=== PATIENT | female | born 1990 | race African-American/Black ===

== ENCOUNTER 2016-10-25 16:59 | Emergency (ER) | payer MEDICAID ==
[~2016-10-25] VITALS: Ht 170.2 cm; Wt 68.0 kg
[2016-10-25 17:13] VITALS: BP 110/70
[2016-10-25 18:40] VITALS: BP 108/64
[2016-10-25] MEDS ORDERED: ROBAXIN-750750 MG PO (18:47)
[2016-10-25] MEDS ORDERED: TYLENOL EXTRA500 MG ORAL (18:47)
[2016-10-25 18:51] VITALS: BP 108/64
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
--- NOTE | 2016-10-26 12:32 | Diagnostic Imaging Report ---
Indication: Neck Pain Findings: 3 views of the cervical spine were obtained. There is no acute fracture identified. Alignment is normal. The open-mouth odontoid view shows an intact dens and good alignment of the lateral masses with respect to the body of C2. There is no soft tissue swelling. Impression: Negative cervical spine examination.
== END 2016-10-25 18:51 | disposition home or self-care (01) ==
LOC: EMR 17:30
DX: R25.2 Cramp and spasm (principal); S13.9XXA Sprain of joints and ligaments of unspecified parts of neck, initial encounter; V43.62XA Car passenger injured in collision with other type car in traffic accident, initial encounter; Y92.410 Unspecified street and highway as the place of occurrence of the external cause; Z88.6 Allergy status to analgesic agent
CPT/HCPCS: 72040; 99284

== ENCOUNTER 2016-12-26 22:57 | Emergency (ER) | payer BC, MEDICAID ==
[~2016-12-26] VITALS: Ht 170.2 cm; Wt 68.5 kg
[~2016-12-26 22:57] MED LIST: ROBAXIN-750750 MG PO; TYLENOL EXTRA500 MG ORAL
[2016-12-26] MEDS ORDERED: NKM (23:09)
[2016-12-26 23:15] VITALS: BP 120/70
[2016-12-27] MEDS ORDERED: REGLAN10 MG ORAL (00:09)
[2016-12-27 00:28] VITALS: BP 120/70
--- NOTE | 2016-12-27 00:38 | Emergency Room Report ---
History of Present Illness General Chief Complaint: Headache Source: Patient Present Illness HPI 26YOF walk in with headache right side/sikh, pulsatile, some blurry vision and nausea started at work Atraumatic Gets headaches once a month Never seen neurologist No history of self/family migraines Denies fever/chils, neck pain/stiffness Took tylenol at work, 325mg only Allergies: Coded Allergies: ASPIRIN (Verified Allergy, Unknown, 10/25/16) GAG REFLEX, CHEST TIGHTNESS IBUPROFEN (Verified Allergy, Unknown, 10/25/16) ACTIVATES GAG REFLEX & CHEST TIGHTNESS Patient History Past Medical History: none Past Surgical History: none Pertinent Family History: none Social History: Denies: smoking, alcohol use, drug use Last Menstrual Period: Last month Now: No Immunizations: UTD Reviewed Nursing Documentation: PMH: Agreed, PSxH: Agreed Nursing Documentation-PMH Past Medical History: No Stated History Review of Systems All Other Systems: negative except mentioned in HPI Physical Exam Vital Signs Date Time Temp Pulse Resp B/P (MAP) Pulse Ox O2 Delivery O2 Flow Rate FiO2 12/26/16 23:04 97.9 80 17 116/70 98 Room Air Sp02 EP Interpretation: reviewed, normal General Appearance: normal inspection, well appearing, no apparent distress, alert Head: atraumatic ENT: normal ENT inspection, hearing grossly normal, normal pharynx, no angioedema, normal voice Neck: normal inspection, full range of motion, supple, no meningismus, no bony tend Respiratory: normal inspection, lungs clear, normal breath sounds, no respiratory distress, no retraction, no wheezing Cardiovascular #1: regular rate, rhythm, no edema Gastrointestinal: normal inspection, normal bowel sounds, non tender, soft, no guarding, no hernia Genitourinary: no CVA tenderness Musculoskeletal: normal inspection, back normal, normal range of motion, Cheryl' s Sign negative Neurologic: normal inspection, alert, oriented x3, responsive, dynamicist III-XII nml as tested, motor strength/tone normal, speech normal Psychiatric: normal inspection, judgement/insight normal, mood/affect normal Skin: normal inspection, normal color, no rash Medical Decision Making Diagnostic Impression: Primary Impression: Headache Qualified Codes: G44.209 - Tension-type headache, unspecified, not intractable ER Course Acute headache VSS. Afebrile No focal neuro deficits, no meningismus Tension vs migraine Given reglan with tylenol here Rx reglan PMD referral for Neuro as needed Last Vital Signs Date Time Temp Pulse Resp B/P (MAP) Pulse Ox O2 Delivery O2 Flow Rate FiO2 12/27/16 00:28 98.2 80 16 120/70 99 Room Air Status: improved Disposition: HOME, SELF-CARE Condition: Improved Scripts Metoclopramide Hcl* (REGLAN*) 10 Mg Tablet 10 MG ORAL BID for 7 Days, #14 TAB Prov: MORRIS GALVAN M.D. 12/27/16 Referrals: NON PHYSICIAN (PCP) Patient Instructions: Tension Headache, Migraine Headache Additional Instructions: - Take tylenol 650mg WITH Reglan 10mg (one pill) up to twice a day for headache - Follow up with primary doc for Neurology referral for ?migraines MORRIS GALVAN M.D. Dec 27, 2016 00:38
== END 2016-12-27 00:27 | disposition home or self-care (01) ==
LOC: EMR 23:56
DX: R51 Headache (principal); Z88.6 Allergy status to analgesic agent
CPT/HCPCS: 99283

== ENCOUNTER 2017-05-24 13:37 | Emergency (ER) | payer BC, MEDICAID ==
[~2017-05-24] VITALS: Ht 170.2 cm; Wt 70.3 kg
[~2017-05-24 13:37] MED LIST changes: +NKM; +REGLAN10 MG ORAL
[2017-05-24 14:32] VITALS: BP 124/73
--- NOTE | 2017-05-24 14:48 | Emergency Room Report ---
History of Present Illness General Chief Complaint: Upper Respiratory Illness Source: Patient Present Illness HPI 26 yo female patient presents to ER complaining of dry cough and congestions x2 weeks. Patient reports history of asthma and bronchitis; states she used inhaler yesterday with mild relief of symptoms; states she needs a new inhaler. Patient reports hx of sick contacts; [place] Patient complains of mucus in her chest and throat. Patient reports symptoms worse at night. Patient denies fever, diarrhea, constipation Allergies: Coded Allergies: ASPIRIN (Verified Allergy, Unknown, 10/25/16) GAG REFLEX, CHEST TIGHTNESS IBUPROFEN (Verified Allergy, Unknown, 10/25/16) ACTIVATES GAG REFLEX & CHEST TIGHTNESS Patient History Past Medical History: see triage record Last Menstrual Period: 05/18/17 Now: No Immunizations: UTD Reviewed Nursing Documentation: PMH: Agreed, PSxH: Agreed Review of Systems All Other Systems: negative except mentioned in HPI Physical Exam Vital Signs Date Time Temp Pulse Resp B/P (MAP) Pulse Ox O2 Delivery O2 Flow Rate FiO2 05/24/17 14:22 98.5 83 16 120/71 99 Room Air 98.4 Sp02 EP Interpretation: reviewed, normal General Appearance: no apparent distress, alert, GCS 15, non-toxic Head: normocephalic, atraumatic Eyes: bilateral eye normal inspection, bilateral eye PERRL ENT: hearing grossly normal, normal pharynx, no angioedema, normal voice, TMs + canals normal, uvula midline, nasal congestion Neck: full range of motion, supple/symm/no masses Respiratory: no rhonchi, no accessory muscle use, decreased breath sounds - right lobe, speaking full sentences, other - no stridor Cardiovascular #1: regular rate, rhythm, no edema Musculoskeletal: back normal, digits/nails normal, gait/station normal, normal range of motion, non-tender Neurologic: alert, oriented x3, responsive, motor strength/tone normal, sensory intact, speech normal Psychiatric: mood/affect normal Skin: no rash Lymphatic: no adenopathy Medical Decision Making PA Attestation Dr. Pham is my supervising Physician whom patient management has been discussed with. Diagnostic Impression: Primary Impression: Bronchitis ER Course Patient presents to ER complaining of breathing difficulty. DDx considered but are not limited to asthma, viral URI, pneumonia. Vital signs are normal, patient is afebrile. Ordered a breathing treatment and CXR. ER COURSE: CXR negative for acute disease. Albuterol/Atrovent breathing treatment provided. Patient reports feeling better following breathing treatment. Lungs able to move air, no crackles, no rhonci. Patient is resting comfortably, in no acute distress, nontoxic appearing. Discharge: -Rx given for Prednisone. -Rx provided for Albuterol MDI. -Rx provided for Guaifenesin At this time pt is stable for d/c to home. Patient to take medications as instructed. Will provide with patient care instructions and any necessary prescriptions. Care plan and follow-up instructions provided. Patient instructed to follow-up with primary care provider in 3 - 5 days. Patient questions asked and answered. ER precautions given. Patient instructed to return to ER immediately for any new or worsening of symptoms including but not limited to increasing SOB, persistent fever. Chest X-Ray Diagnostic Results Chest X-Ray Diagnostic Results : Chest X-Ray Ordered: Yes # of Views/Limited/Complete: 1 View Indication: Chest Pain EP Interpretation: Yes PA Xray: Interpretation reviewed, by supervising MD, and agrees with findings. Interpretation: no consolidation, no effusion, no pneumothorax, no acute cardiopulmonary disease Impression: No acute disease AMADO Scribe Text Parveen Ferguson PA-C Last Vital Signs Date Time Temp Pulse Resp B/P (MAP) Pulse Ox O2 Delivery O2 Flow Rate FiO2 05/24/17 14:22 98.5 83 16 120/71 99 Room Air 98.4 Status: improved Disposition: HOME, SELF-CARE Condition: Stable Scripts Prednisone* (PREDNISONE*) 20 Mg Tablet 40 MG ORAL DAILY for 5 Days, #10 TAB Prov: Vinicio Ferguson 05/24/17 Guaifenesin* (ADULT WAL-TUSSIN*) 100 Mg/5 Ml Liquid 10 ML ORAL Q4H for 7 Days, #118 ML Prov: Vinicio Ferguson 05/24/17 Albuterol Sulfate* (ALBUTEROL SULFATE MDI*) 8.5 Gm Hfa.aer.ad 2 PUFF INH Q6H, #1 INH 0 Refills Prov: Vinicio Ferguson 05/24/17 Patient Instructions: Acute Bronchitis, [id number] Additional Instructions: Followup with primary care provider in 3 -5 days. Take medications as directed. Patient questions asked and answered. ER precautions given, patient instructed to return to ER immediately for any new or worsening of symptoms including but not limited to fever, chest pain, intractable vomiting, difficulty breathing. Vinicio Ferguson May 24, 2017 14:47
[2017-05-24] MEDS ORDERED: Albuterol/Ipratropium 3ml neb HHN ONE (15:30)
[2017-05-24] MEDS ORDERED: PREDNISONE20 MG ORAL (15:46)
[2017-05-24] MEDS ORDERED: ADULT WAL-100 MG/5 M ORAL (15:46)
[2017-05-24] MEDS ORDERED: ALBUTEROL SULF8.5 GM INH (15:46)
--- NOTE | 2017-05-24 16:33 | Diagnostic Imaging Report ---
Indication: Dyspnea Comparison: None A single view chest radiograph was obtained. Findings: Cardiomediastinal appearance is within normal limits for age. Pulmonary vascularity is appropriate. The diaphragmatic contour is smooth and costophrenic angles are sharp. No pleural effusions are identified. The bones are unremarkable. Impression: No acute findings
[2017-05-24 16:44] VITALS: BP 124/71
== END 2017-05-24 16:47 | disposition home or self-care (01) ==
LOC: EMR 14:59
DX: J40 Bronchitis, not specified as acute or chronic (principal); Z88.6 Allergy status to analgesic agent
CPT/HCPCS: 71045; 94640; 94664; 99284; J7620

== ENCOUNTER 2017-06-18 15:21 | Emergency (ER) | payer MEDICAID ==
[~2017-06-18] VITALS: Ht 170.2 cm; Wt 72.6 kg
[~2017-06-18 15:21] MED LIST changes: +ADULT WAL-100 MG/5 M ORAL; +ALBUTEROL SULF8.5 GM INH; +PREDNISONE20 MG ORAL
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
[2017-06-18 16:19] VITALS: BP 125/73
[2017-06-18] MEDS ORDERED: TYLENOL EXTRA500 MG ORAL (16:31)
[2017-06-18] MEDS ORDERED: ROBAXIN500 MG PO (16:31)
[2017-06-18 16:33] VITALS: BP 125/73
== END 2017-06-18 16:40 | disposition home or self-care (01) ==
LOC: EMR 16:15
DX: M54.6 Pain in thoracic spine (principal); V43.52XA Car driver injured in collision with other type car in traffic accident, initial encounter; Y92.410 Unspecified street and highway as the place of occurrence of the external cause; M62.838 Other muscle spasm; Z88.6 Allergy status to analgesic agent
CPT/HCPCS: 99284

== ENCOUNTER 2017-10-08 11:50 | Emergency (ER) | payer MEDICAID ==
[~2017-10-08] VITALS: Ht 170.2 cm; Wt 68.0 kg
[~2017-10-08 11:50] MED LIST changes: +ROBAXIN500 MG PO
[2017-10-08 12:08] VITALS: BP 122/75
--- NOTE | 2017-10-08 12:23 | Emergency Room Report ---
History of Present Illness General Chief Complaint: Female Urogenital Problems Source: Patient Present Illness HPI Pt. presents to the ED c/o 09/19 in severity dysuria, x 2 days, denies fevers or chills. Denies , frequency, N/V, low back pain, abdominal pain or tenderness. Denies genital lesions, rashes, swollen tender lymph nodes or vaginal discharge. Allergies: Coded Allergies: ASPIRIN (Verified Allergy, Unknown, 10/25/16) GAG REFLEX, CHEST TIGHTNESS IBUPROFEN (Verified Allergy, Unknown, 10/25/16) ACTIVATES GAG REFLEX & CHEST TIGHTNESS Patient History Past Medical History: see triage record Last Menstrual Period: 09/28/17 Now: No : 0 Para: 0 Immunizations: UTD Reviewed Nursing Documentation: PMH: Agreed; PSxH: Agreed Nursing Documentation-PMH Past Medical History: No History, Except For Review of Systems All Other Systems: negative except mentioned in HPI Physical Exam Vital Signs Date Time Temp Pulse Resp B/P (MAP) Pulse Ox O2 Delivery O2 Flow Rate FiO2 10/08/17 11:55 97.9 77 18 122/75 99 Room Air 97.9 Sp02 EP Interpretation: reviewed, normal General Appearance: no apparent distress, alert, GCS 15, non-toxic Head: normocephalic, atraumatic ENT: hearing grossly normal, normal voice Neck: full range of motion Respiratory: chest non-tender, lungs clear, normal breath sounds, speaking full sentences Cardiovascular #1: regular rate, rhythm Gastrointestinal: normal bowel sounds, non tender, soft Rectal: deferred Genitourinary: normal inspection, no CVA tenderness Musculoskeletal: back normal, gait/station normal, normal range of motion, non- tender Neurologic: alert, oriented x3, responsive, motor strength/tone normal, sensory intact, normal gait, speech normal, grossly normal Psychiatric: judgement/insight normal Skin: normal color, no rash, warm/dry, well hydrated Lymphatic: no adenopathy Medical Decision Making PA Attestation Dr. santos is my supervising Physician whom patient management has been discussed with. Diagnostic Impression: Primary Impression: Dysuria ER Course Pt. presents to the ED c/o 09/19 in severity dysuria, x 2 days, denies fevers or chills. Denies , frequency, N/V, low back pain, abdominal pain or tenderness. Denies genital lesions, rashes, swollen tender lymph nodes or vaginal discharge. Ddx considered but are not limited to UTi , Pyelo, STI, Stone, Cystitis Vital signs: are WNL, pt. is afebrile H&PE are most consistent with UTI ORDERS: - UA labs are attached - Most indicative of contamination: presence of equal amounts of bacteria and squamous cells, no elevation in inflammatory markers, nitrite negative. ED INTERVENTIONS: None required at this time. DISCHARGE: At this time pt. is stable for d/c to home. Will provide printed patient care instructions, and any necessary prescriptions. Care plan and follow up instructions have been discussed with the patient prior to discharge. Labs Test 10/08/17 12:15 Urine Color Pale yellow Urine Appearance Clear Urine pH 7 (4.5-8.0) Urine Specific Stephens 1.005 (1.005-1.035) Urine Protein Negative (NEGATIVE) Urine Glucose (UA) Negative (NEGATIVE) Urine Ketones Negative (NEGATIVE) Urine Occult Blood Negative (NEGATIVE) Urine Nitrite Negative (NEGATIVE) Urine Bilirubin Negative (NEGATIVE) Urine Urobilinogen Normal MG/DL (0.0-1.0) Urine Leukocyte Esterase 1+ (NEGATIVE) Urine RBC 0-2 /HPF (0 - 2) Urine WBC 2-4 /HPF (0 - 2) Urine Squamous Epithelial Cells Many /LPF (NONE/OCC) Urine Bacteria Occasional /HPF (NONE) Last Vital Signs Date Time Temp Pulse Resp B/P (MAP) Pulse Ox O2 Delivery O2 Flow Rate FiO2 10/08/17 12:08 97.9 77 18 122/75 99 Room Air 97.9 Disposition: HOME, SELF-CARE Condition: Stable Scripts Phenazopyridine Hcl* (PYRIDIUM*) 200 Mg Tablet 200 MG ORAL THREE TIMES A DAY for 3 Days, #9 TAB 0 Refills Prov: Evelin Soto 10/08/17 Patient Instructions: Urinary Tract Infection Additional Instructions: Take medications as directed. Pyridium will cause your urine to change color (Red/Ellis), this is a normal side effect of the medication. Follow up with a Primary Care Provider in 3-5 days, even if your symptoms have resolved. --Please review list of primary care clinics, if you do not already have a primary care provider Return sooner to ED if new symptoms occur, or current symptoms become worse. - Please note that this Emergency Department Report was dictated using [employer]akedocument scanner technology software, occasionally this can lead to erroneous entry secondary to interpretation by the dictation equipment. Evelin Soto Oct 08, 2017 12:23
[2017-10-08] MEDS ORDERED: Phenazopyridine 200mg tab ORAL ONE (12:30)
[2017-10-08 13:07] LABS: APPEARANCE,URINE CLEAR; BILIRUBIN, URINE NEGATIVE (NEGATIVE); COLOR,URINE PALE YELLOW; GLUCOSE, URINE (UA) NEGATIVE (NEGATIVE); KETONES,URINE NEGATIVE (NEGATIVE); LEUKOCYTE ESTERASE ,URINE 1+ (NEGATIVE); NITRITE,URINE NEGATIVE (NEGATIVE); PH,URINE 7 (4.5-8.0); PROTEIN,URINE NEGATIVE (NEGATIVE); UROBILINOGEN,URINE NORMAL MG/DL (0.0-1.0)
[2017-10-08] MEDS ORDERED: PHENAZOPYRIDIN200 MG ORAL (13:20)
[2017-10-08 13:30] VITALS: BP 122/75
[2017-10-08] MEDS ORDERED: Fluconazole 100mg tab ORAL ONE (13:30)
== END 2017-10-08 13:31 | disposition home or self-care (01) ==
LOC: EMR 13:24
DX: R30.0 Dysuria (principal); Z88.6 Allergy status to analgesic agent
CPT/HCPCS: 81003; 99283

== ENCOUNTER 2017-12-04 09:06 | Emergency (ER) | payer MEDICAID ==
[~2017-12-04] VITALS: Ht 170.2 cm; Wt 70.3 kg
[~2017-12-04 09:06] MED LIST changes: +PHENAZOPYRIDIN200 MG ORAL
[2017-12-04 09:25] VITALS: BP 118/87
--- NOTE | 2017-12-04 09:58 | Emergency Room Report ---
History of Present Illness General Chief Complaint: Upper Respiratory Illness Source: Patient Present Illness HPI Patient presents with complaints of cough and congestion Reports runny nose symptoms ongoing for the past 2 days Denies any fevers denies any neck pain Denies any chest pain or shortness of breath There was a note in triage regarding painful cough however at this time patient asymptomatic Denies any recent travel [place] Allergies: Coded Allergies: ASPIRIN (Verified Allergy, Unknown, 10/25/16) GAG REFLEX, CHEST TIGHTNESS IBUPROFEN (Verified Allergy, Unknown, 10/25/16) ACTIVATES GAG REFLEX & CHEST TIGHTNESS Patient History Past Medical History: see triage record Pertinent Family History: none Reviewed Nursing Documentation: PMH: Agreed; PSxH: Agreed Nursing Documentation-PMH Past Medical History: No Stated History Review of Systems All Other Systems: negative except mentioned in HPI Physical Exam Vital Signs Date Time Temp Pulse Resp B/P (MAP) Pulse Ox O2 Delivery O2 Flow Rate FiO2 12/04/17 09:13 97.8 78 14 118/87 97 Room Air 97.9 Sp02 EP Interpretation: reviewed, normal General Appearance: well appearing, no apparent distress Head: normocephalic, atraumatic Eyes: bilateral eye PERRL, bilateral eye EOMI ENT: hearing grossly normal, normal pharynx, TMs + canals normal, uvula midline , other - Mild clear rhinorrhea Neck: full range of motion, supple, no meningismus, no bony tend Respiratory: lungs clear, normal breath sounds, no rhonchi, no respiratory distress, no retraction, no accessory muscle use Cardiovascular #1: normal peripheral pulses, regular rate, rhythm, no edema, no gallop, no JVD, no murmur Gastrointestinal: normal bowel sounds, non tender, soft, no mass, no organomegaly, non-distended, no guarding, no hernia, no pulsatile mass, no rebound Genitourinary: no CVA tenderness Musculoskeletal: normal inspection Neurologic: oriented x3, responsive, knitting machine fixer head III-XII nml as tested, motor strength/ tone normal, sensory intact Psychiatric: mood/affect normal Skin: normal color, no rash, warm/dry, palpation normal Lymphatic: normal inspection, no adenopathy Medical Decision Making Diagnostic Impression: Primary Impression: Upper respiratory infection ER Course Patient has clinical history and exam consistent with upper respiratory infection This appears to be likely viral in nature Patient is taking [id number] medication at home and will continue the medication At this time will have initial conservative outpatient trial Last Vital Signs Date Time Temp Pulse Resp B/P (MAP) Pulse Ox O2 Delivery O2 Flow Rate FiO2 12/04/17 09:25 78 14 Room Air 12/04/17 09:25 97.9 118/87 97 97.9 Status: unchanged Disposition: HOME, SELF-CARE Condition: Stable Referrals: [facility] (PCP) Additional Instructions: Patient is provided with the discharge instructions notified to follow up with primary doctor in the next 2-3 days otherwise return to the er with any worsening symptoms. Please note that this report is being documented using [employer] technology. This can lead to erroneous entry secondary to incorrect interpretation by the dictating instrument. Duyen Bruno DO Dec 04, 2017 09:58
[2017-12-04 10:02] VITALS: BP 118/87
== END 2017-12-04 10:02 | disposition home or self-care (01) ==
LOC: EMR 09:24
DX: J06.9 Acute upper respiratory infection, unspecified (principal)
CPT/HCPCS: 99282

== ENCOUNTER 2018-06-01 10:48 | Emergency (ER) | payer MEDICAID ==
[~2018-06-01] VITALS: Ht 170.2 cm; Wt 70.8 kg
--- NOTE | 2018-06-01 11:22 | NUR ---
ED Nurse Note: Pt walked in to ED due to low back pain for 1 week. no recent injury or urinary problem reported. Rating the pain a 10/10. Ambulatory. Non radiating.
[2018-06-01 11:23] VITALS: BP 110/74
[2018-06-01 12:20] LABS: APPEARANCE,URINE CLEAR; BILIRUBIN, URINE NEGATIVE (NEGATIVE); GLUCOSE, URINE (UA) NEGATIVE (NEGATIVE); KETONES,URINE NEGATIVE (NEGATIVE); LEUKOCYTE ESTERASE ,URINE NEGATIVE (NEGATIVE); NITRITE,URINE NEGATIVE (NEGATIVE); PH,URINE 7 (4.5-8.0); PROTEIN,URINE NEGATIVE (NEGATIVE); UROBILINOGEN,URINE NORMAL MG/DL (0.0-1.0)
[2018-06-01 12:22] LABS: COLOR,URINE YELLOW
--- NOTE | 2018-06-01 13:18 | Emergency Room Report ---
History of Present Illness General Chief Complaint: Back Pain-No Injury Source: Patient Present Illness HPI Patient presents with back pain. It's lumbar pain. It's worsened through the week. She's having difficulty sleeping at night. She feels it when she tries to get out of bed and from a sitting position.She rates the pain 10/10, aching and stiffness. It does not radiate to her legs. She denies any trauma. No numbness, incontinence, weakness, blood thinners, oncologic problems or IV drug use. The patient works at the [employer] and has to repeatedly lift heavy objects. No fevers, chills, chest pain, palpitations, nausea, vomiting, diarrhea, dysuria , abdominal pain, shortness of breath, depression, visual changes, headache. Patient is allergic to Motrin and aspirin. 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 Last Menstrual Period: 05/12/18 Reviewed Nursing Documentation: PMH: Agreed; PSxH: Agreed Nursing Documentation-PMH Past Medical History: No History, Except For Review of Systems All Other Systems: negative except mentioned in HPI Physical Exam Vital Signs Date Time Temp Pulse Resp B/P (MAP) Pulse Ox O2 Delivery O2 Flow Rate FiO2 06/01/18 10:54 98.1 75 18 119/74 98 Room Air General Appearance: well appearing, no apparent distress, GCS 15 Head: normocephalic, atraumatic Eyes: bilateral eye normal inspection, bilateral eye PERRL ENT: hearing grossly normal, normal voice, moist mucus membranes Neck: full range of motion, supple Respiratory: no respiratory distress, speaking full sentences Musculoskeletal: gait/station normal, normal range of motion, no calf tenderness, other - Lumbar tenderness with paraspinous muscle tenderness more on the left-hand side. Straight leg raise is negative bilaterally. Neurologic: alert, oriented x3, motor strength/tone normal, DTRs symmetric, sensory intact, cerebellar normal, normal gait Psychiatric: mood/affect normal Reflexes: 2+ knee (R), 2+ knee (L), 2+ ankle (R), 2+ ankle (L) Skin: no rash Medical Decision Making Diagnostic Impression: Primary Impression: Back pain Qualified Codes: M54.5 - Low back pain ER Course Patient presents with a week of worsening lumbar pain. Differential includes lumbar strain, muscle spasm, degenerative disc disease, fatigue secondary to repetitive movements. No red flag symptoms exist. Imaging is not indicated at this time. Urinalysis is indicated. The patient will be treated with Tylenol. Unable to give the patient Motrin because of history of allergy. Urinalysis unremarkable. Patient improved. Discussed possible etiology and treatment plan. Patient stable for outpatient observation and treatment Laboratory Tests Test 06/01/18 11:26 Urine Color Yellow Urine Appearance Clear Urine pH 7 (4.5-8.0) Urine Specific [place] 1.015 (1.005-1.035) Urine Protein Negative (NEGATIVE) Urine Glucose (UA) Negative (NEGATIVE) Urine Ketones Negative (NEGATIVE) Urine Blood Negative (NEGATIVE) Urine Nitrite Negative (NEGATIVE) Urine Bilirubin Negative (NEGATIVE) Urine Urobilinogen Normal MG/DL (0.0-1.0) Urine Leukocyte Esterase Negative (NEGATIVE) Urine HCG, Qualitative Negative (NEGATIVE) Last Vital Signs Date Time Temp Pulse Resp B/P (MAP) Pulse Ox O2 Delivery O2 Flow Rate FiO2 06/01/18 13:23 98.1 88 22 122/75 98 Room Air Status: improved Disposition: HOME, SELF-CARE Condition: Improved Scripts Tramadol Hcl* (ULTRAM*) 50 Mg Tablet 50 MG ORAL Q6H PRN for For Pain, #6 TAB 0 Refills Prov: Jason Arreguin MD 06/01/18 Methocarbamol* (ROBAXIN*) 500 Mg Tablet 500 MG PO TID, #10 TAB 0 Refills Prov: Jason Arreguin MD 06/01/18 Acetaminophen (Tylenol) 325 Mg Tablet 650 MG ORAL Q6H PRN for Prn Pain/Headache/Temp > 101, #20 TAB 0 Refills Prov: Jason Arreguin MD 06/01/18 Referrals: [facility] (PCP) Jason Arreguin MD Jun 01, 2018 13:18
[2018-06-01] MEDS ORDERED: TYLENOL325 MG ORAL (13:20)
[2018-06-01] MEDS ORDERED: TRAMADOL HCL50 MG ORAL (13:20)
[2018-06-01] MEDS ORDERED: ROBAXIN500 MG PO (13:20)
[2018-06-01 13:23] VITALS: BP 122/75
--- NOTE | 2018-06-01 13:24 | NUR ---
ER DISCHARGE NOTE: Patient is cleared to be discharged per ERMD, pt is aox4, on room air, with stable vital signs. pt was given dc and prescription instructions, pt was able to verbalize understanding, pt id band removed without complications. pt is able to ambulate with steady gait. pt took all belongings.
== END 2018-06-01 13:24 | disposition home or self-care (01) ==
LOC: EMR 12:13
DX: M54.5 Low back pain (principal); Z88.6 Allergy status to analgesic agent
CPT/HCPCS: 81003; 81025; 99283

== ENCOUNTER 2019-01-16 08:39 | Emergency (ER) | payer MEDICAID ==
[~2019-01-16] VITALS: Ht 170.2 cm; Wt 72.6 kg
[~2019-01-16 08:39] MED LIST changes: +TRAMADOL HCL50 MG ORAL; +TYLENOL325 MG ORAL
--- NOTE | 2019-01-16 08:48 | Emergency Room Report ---
History of Present Illness General Chief Complaint: To Be Triaged Source: Patient Present Illness HPI 28-year-old female comes to the ER for left eye crusting, denies vision complaints, reports that her eyelid is hurting slightly, and just woke up with this problem this morning. Denies any fevers, ocular injuries, vision loss, blurred vision, diplopia, foreign body sensation, not tried any medications for her symptomatology. Allergies: Coded Allergies: ASPIRIN (Verified Allergy, Unknown, 10/25/16) GAG REFLEX, CHEST TIGHTNESS IBUPROFEN (Verified Allergy, Unknown, 10/25/16) ACTIVATES GAG REFLEX & CHEST TIGHTNESS Patient History Past Medical History: see triage record Social History: Denies: smoking Reviewed Nursing Documentation: PMH: Agreed; PSxH: Agreed Review of Systems All Other Systems: negative except mentioned in HPI Physical Exam Sp02 EP Interpretation: reviewed, normal General Appearance: no apparent distress, alert, non-toxic Head: normocephalic Eyes: bilateral eye normal inspection, bilateral eye PERRL, bilateral eye EOMI , bilateral eye other - no crusting in L eye, no purulence, L superior eye lid with mild erythema/edema, but no tenderness, very small stye visualized but nonpalpable due to small size ENT: normal ENT inspection, hearing grossly normal, normal pharynx, no angioedema, normal voice, moist mucus membranes Neck: normal inspection, full range of motion, supple, thyroid normal, supple/ symm/no masses Respiratory: chest non-tender, lungs clear, normal breath sounds, no rhonchi, no respiratory distress, no wheezing, chest symmetrical, palpation of chest normal Cardiovascular #1: normal peripheral pulses, regular rate, rhythm, no edema, no gallop, no JVD, no murmur, no rub Cardiovascular #2: 2+ radial (R), 2+ radial (L) Gastrointestinal: normal inspection, non tender, soft, no mass, no guarding, no rebound Rectal: deferred Genitourinary: deferred Musculoskeletal: back normal, gait/station normal, normal range of motion Neurologic: alert, responsive, 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 Today, I do not suspect any emergent pathology, but do suspect stye vs. mild blepharitis. Patient has no eye pain or visual disturbance, does not use contact lenses. Will dc with instructions for warm compresses, baby shampoo, and topical erythromycin ointment rx with ophthalmology f/u in 5-7 days if symptoms not resolving or sooner if worsening. Disposition: HOME, SELF-CARE Condition: Stable JOSE IRWIN M.D Jan 16, 2019 08:48
--- NOTE | 2019-01-16 08:53 | NUR ---
ED Nurse Note: pt presents to ED with L eyelid swelling and pain since yesterday. pt describes the pain as a "sharp throbbing." she rates the px a 7/10 that is worse when she blinks. pt denies any trauma to the area, foreign body, animal bite or use of contacts. pt denies pain to the actual eyeball, just the upper lid. eye examination results are L: 20/30, R: 20/20, bilat: 20/20. pt denies any fever, SOB, RODRIGUES or other symptoms at this time
[2019-01-16 08:56] VITALS: BP 123/73
[2019-01-16] MEDS ORDERED: ERYTHROMYCIN3.5 GM LEFT EYE (09:04)
[2019-01-16 09:10] VITALS: BP 123/73
== END 2019-01-16 09:10 | disposition home or self-care (01) ==
LOC: EMR 08:58
DX: H00.014 Hordeolum externum left upper eyelid (principal); H01.004 Unspecified blepharitis left upper eyelid; Z88.6 Allergy status to analgesic agent; Z88.8 Allergy status to other drugs, medicaments and biological substances
CPT/HCPCS: 99282

== ENCOUNTER 2019-03-17 07:41 | Emergency (ER) | payer MEDICAID ==
[~2019-03-17] VITALS: Ht 170.2 cm; Wt 74.8 kg
[~2019-03-17 07:41] MED LIST changes: +ERYTHROMYCIN3.5 GM LEFT EYE
[2019-03-17 07:55] VITALS: BP 117/70
--- NOTE | 2019-03-17 08:00 | NUR ---
ED Nurse Note: Patient arrived to the ED by car complaining of sharp chest pain, chest tightness, and shortness of breath that woke her out of her sleep this morning arount 4am. Patient has hx of asthma. Used inhaler with no relief.
--- NOTE | 2019-03-17 08:01 | Emergency Room Report ---
History of Present Illness General Chief Complaint: Asthma Source: Patient Present Illness HPI This patient has a history of asthma. She states that over the past few days she had noted some URI symptoms. She states she had been using her albuterol inhaler. However, she states she woke up this morning with chest tightness and chest pain and breathing consistent with asthma exacerbation. She denies fever chills. She states she has occasional cough. She denies sore throat. She denies headache or neck pain. She has no other complaints. Allergies: Coded Allergies: ASPIRIN (Verified Allergy, Unknown, 10/25/16) GAG REFLEX, CHEST TIGHTNESS IBUPROFEN (Verified Allergy, Unknown, 10/25/16) ACTIVATES GAG REFLEX & CHEST TIGHTNESS Patient History Past Medical History: see triage record, asthma Social History: Denies: smoking, alcohol use, drug use Last Menstrual Period: on period Reviewed Nursing Documentation: PMH: Agreed; PSxH: Agreed Nursing Documentation-PMH Past Medical History: No History, Except For Hx Asthma: Yes Review of Systems All Other Systems: negative except mentioned in HPI Physical Exam Vital Signs Date Time Temp Pulse Resp B/P (MAP) Pulse Ox O2 Delivery O2 Flow Rate FiO2 03/17/19 07:50 98.1 71 16 117/70 (86) 98 Room Air Sp02 EP Interpretation: reviewed, normal General Appearance: no apparent distress, alert, GCS 15, non-toxic Head: normocephalic, atraumatic Eyes: bilateral eye normal inspection, bilateral eye PERRL ENT: hearing grossly normal, normal pharynx, no angioedema, normal voice Neck: full range of motion, supple/symm/no masses Respiratory: chest non-tender, no respiratory distress, no retraction, no accessory muscle use, speaking full sentences, wheezing, expiration Cardiovascular #1: regular rate, rhythm, no edema Rectal: deferred Musculoskeletal: back normal, normal range of motion, gait/station normal, non- tender Neurologic: alert, motor strength/tone normal, oriented x3, sensory intact, responsive, speech normal Psychiatric: judgement/insight normal, memory normal, mood/affect normal, no suicidal/homicidal ideation Skin: no rash, normal color Medical Decision Making Diagnostic Impression: Primary Impression: Asthma attack ER Course This patient has a clinical presentation consistent with mild asthma exacerbation. Patient has a history of asthma and has wheezing on physical exam. The patient was given albuterol nebulizer treatment. The patient had significant improvement in subjective shortness of breath. The patient's lung exam improved significantly. Overall, the patient is well-appearing and nontoxic without any evidence of respiratory distress or this asthmaticus. The lung exam was clear discharge. The patient was given close return precautions and followup instructions. Last Vital Signs Date Time Temp Pulse Resp B/P (MAP) Pulse Ox O2 Delivery O2 Flow Rate FiO2 03/17/19 07:50 98.1 71 16 117/70 (86) 98 Room Air Status: improved Disposition: HOME, SELF-CARE Condition: Improved Patient Instructions: Asthma, Adult Karen Palacios DO Mar 17, 2019 08:01
[2019-03-17] MEDS ORDERED: Albuterol ud Inhalation HHN ONE (08:15)
--- NOTE | 2019-03-17 08:31 | NUR ---
ED Nurse Note: RT finished breathing treatment. Patient resting in bed.
--- NOTE | 2019-03-17 08:40 | NUR ---
ED Nurse Note: Patient reassessed, she states that her chest pain and tightness has improved. Chest pain now only a 3-4/10. Patient can breathe easier and expectorated small amount of phlegm.
--- NOTE | 2019-03-17 08:50 | NUR ---
ED Nurse Note: Dr. Palacios at bedside.
[2019-03-17 09:00] VITALS: BP 112/74
--- NOTE | 2019-03-17 09:00 | NUR ---
Patient cleared for discharge by Dr. Palacios. Reviewed discharge instructions with patient. Patient verbalized understanding.
== END 2019-03-17 09:00 | disposition home or self-care (01) ==
LOC: EMR 08:05
DX: J45.901 Unspecified asthma with (acute) exacerbation (principal); Z88.6 Allergy status to analgesic agent
CPT/HCPCS: 94640; 94664; Z7502; 99283

== ENCOUNTER 2019-03-23 08:01 | Emergency (ER) | payer MEDICAID ==
[~2019-03-23] VITALS: Ht 170.2 cm; Wt 72.6 kg
[2019-03-23 08:13] VITALS: BP 122/70
--- NOTE | 2019-03-23 08:13 | NUR ---
ED Nurse Note: Patient walked in to ER c/o left lower leg swelling and heaviness since last night. Denies any fall or injury. No SOB. VSS.
--- NOTE | 2019-03-23 09:29 | NUR ---
ED Nurse Note: ERMD at bedside.
--- NOTE | 2019-03-23 09:39 | NUR ---
ED Nurse Note: Xray at bedside.
--- NOTE | 2019-03-23 09:52 | NUR ---
ED Nurse Note: Pt was taken for US.
--- NOTE | 2019-03-23 10:15 | NUR ---
ED Nurse Note: Pt came back from US.
--- NOTE | 2019-03-23 10:21 | Diagnostic Imaging Report ---
Indication: Pain status post injury Technique: XRAY Leg Lower Tib Fib 2v L Comparison: None Findings: Bone mineralization within normal limits. No acute fracture or dislocation is identified. Partially imaged knee and ankle joints appear maintained. No radiopaque foreign body. Impression: No acute fracture or dislocation.
--- NOTE | 2019-03-23 10:37 | Diagnostic Imaging Report ---
Indication: Left leg pain and swelling Technique: Grayscale and duplex Doppler imaging of the veins in left lower extremity performed in real time utilizing compression and augmentation. Comparison: None Findings: Duplex Doppler interrogation of the veins in left lower extremity was performed from the common femoral vein to the popliteal vein. Normal venous compressibility demonstrated throughout. No thrombus identified. Waveform analysis shows good respiratory phasicity and augmentation. Imaged proximal calf veins patent. IMPRESSION: No evidence of deep venous thrombosis .
--- NOTE | 2019-03-23 11:24 | Emergency Room Report ---
History of Present Illness General Chief Complaint: Pain Source: Patient Present Illness HPI Patient states that a few days ago she noted pain on her left lower leg and a localized area of swelling. She states the pain radiates from just above the ankle to the mid dykes. She denies trauma or injury. She denies fever chills. She does state that she has a history of an old fracture in that location as a child. She denies long distance travel. She denies chest pain or shortness of breath. She has no other complaints. Allergies: Coded Allergies: ASPIRIN (Verified Allergy, Unknown, 10/25/16) GAG REFLEX, CHEST TIGHTNESS IBUPROFEN (Verified Allergy, Unknown, 10/25/16) ACTIVATES GAG REFLEX & CHEST TIGHTNESS Patient History Past Medical History: see triage record, asthma Social History: Denies: smoking, alcohol use, drug use Last Menstrual Period: 03/17/19 Now: No : 1 Para: 0 Reviewed Nursing Documentation: PMH: Agreed; PSxH: Agreed Nursing Documentation-PMH Past Medical History: No History, Except For Hx Asthma: Yes Review of Systems All Other Systems: negative except mentioned in HPI Physical Exam Vital Signs Date Time Temp Pulse Resp B/P (MAP) Pulse Ox O2 Delivery O2 Flow Rate FiO2 03/23/19 08:04 98.1 86 18 122/70 (87) 97 Room Air Sp02 EP Interpretation: reviewed, normal General Appearance: no apparent distress, alert, GCS 15, non-toxic Head: normocephalic, atraumatic Eyes: bilateral eye normal inspection ENT: hearing grossly normal, no angioedema, normal voice Neck: normal inspection, full range of motion Respiratory: no respiratory distress, no retraction, no accessory muscle use, speaking full sentences Rectal: deferred Musculoskeletal: back normal, normal range of motion, gait/station normal, tender, swelling - [id number] region of slight swelling just proximal to the ankle over the lateral lower leg. Calve non-tender. No erythema or warmth. Neurologic: alert, motor strength/tone normal, oriented x3, sensory intact, responsive, speech normal Psychiatric: judgement/insight normal, memory normal, mood/affect normal, no suicidal/homicidal ideation Reflexes: 3+ bicep (R), 3+ bicep (L), 3+ tricep (R), 3+ tricep (L), 3+ knee (R) , 3+ knee (L) Lymphatic: no adenopathy Medical Decision Making Diagnostic Impression: Primary Impression: Lymphedema ER Course There is an area of localized swelling over the left lower dykes region. I did obtain an ultrasound to rule out DVT and this was negative. An x-ray of the left tib-fib showed an old healed fracture at that location but no other abnormalities. There is no evidence of infection and I do not suspect cellulitis. Possibly this is lymphedema or muscular in etiology. Regardless, there is no emergency medical condition. The patient was instructed to follow- up with her primary care physician for further evaluation and treatment if her symptoms persist. She is given close return precautions and follow-up instructions. Other X-Ray Diagnostic Results Other X-Ray Diagnostic Results : X-Ray ordered: L. tib/fib # of Views/Limited Vs Complete: Complete Indication: Pain EP Interpretation: Yes Interpretation: no fractures Impression: No acute disease Electronically Signed by: Karen Palacios DO CT/MRI/US Diagnostic Results CT/MRI/US Diagnostic Results : Imaging Test Ordered: US LLE Impression No DVT. See official report in the electronic medical record. Last Vital Signs Date Time Temp Pulse Resp B/P (MAP) Pulse Ox O2 Delivery O2 Flow Rate FiO2 03/23/19 08:13 98.1 79 18 122/70 97 Room Air Status: improved Disposition: HOME, SELF-CARE Condition: Improved Referrals: [facility] ([facility]P) Karen Palacios DO Mar 23, 2019 11:24
[2019-03-23 11:29] VITALS: BP 122/70
--- NOTE | 2019-03-23 11:29 | NUR ---
ED Nurse Note: Pt cleared by ERMD for discharge. DC instructions was given and explained to pt and verbalized understanding of teachings. All medical deviecs such as ID band removed. Pt is AAO x4, ambulatory and left with all personal belongings.
== END 2019-03-23 11:29 | disposition home or self-care (01) ==
LOC: EMR 08:32
DX: I89.0 Lymphedema, not elsewhere classified (principal); J45.909 Unspecified asthma, uncomplicated; Z88.6 Allergy status to analgesic agent
CPT/HCPCS: 73590; 93971; Z7502; 99284

== ENCOUNTER 2019-04-01 09:20 | Emergency (ER) | payer MEDICAID ==
[~2019-04-01] VITALS: Ht 170.2 cm; Wt 68.0 kg
[2019-04-01 09:28] VITALS: BP 117/71
--- NOTE | 2019-04-01 09:28 | NUR ---
ED Nurse Note: PT WALKED IN DUE TO LEFT WRIST PAIN S/P FALL. PT MISSED STEP AND FELL HITTING HER LEFT WRIST. DENIES HEAD INJURY. AAO X4 AND AMBULATORY.
[2019-04-01] MEDS ORDERED: NKM (09:32)
[2019-04-01 10:15] VITALS: BP 122/87
--- NOTE | 2019-04-01 10:15 | NUR ---
ER DISCHARGE NOTE: PT IS NOWHERE TO BE FOUND IN THE ED AND [facility]. NO IV ACCESS. DR MOLINA AND ER CHARGE NURSE NOTIFIED.
--- NOTE | 2019-04-01 14:14 | Emergency Room Report ---
History of Present Illness General Chief Complaint: Upper Extremity Injury Source: Patient Present Illness HPI Patient left after triage, without being seen by physician. Allergies: Coded Allergies: ASPIRIN (Verified Allergy, Unknown, 10/25/16) GAG REFLEX, CHEST TIGHTNESS IBUPROFEN (Verified Allergy, Unknown, 10/25/16) ACTIVATES GAG REFLEX & CHEST TIGHTNESS Nursing Documentation-[facility] Past Medical History: No History, Except For Hx Asthma: Yes Physical Exam Vital Signs Date Time Temp Pulse Resp B/P (MAP) Pulse Ox O2 Delivery O2 Flow Rate FiO2 04/01/19 09:28 98.4 82 16 117/71 (86) 98 Room Air Medical Decision Making Last Vital Signs Date Time Temp Pulse Resp B/P (MAP) Pulse Ox O2 Delivery O2 Flow Rate FiO2 04/01/19 10:15 98.4 79 19 122/87 100 Room Air Disposition: LEFT W/OUT BEING SEEN Referrals: NON PHYSICIAN (PCP) Jerzy Malone M.D. Apr 01, 2019 14:14
== END 2019-04-01 10:15 | disposition home or self-care (01) ==
LOC: EMR 09:52
DX: Z53.21 Procedure and treatment not carried out due to patient leaving prior to being seen by health care provider (principal); Z88.6 Allergy status to analgesic agent

== ENCOUNTER 2019-12-22 10:00 | Emergency (ER) | payer MEDICAID ==
[~2019-12-22] VITALS: Ht 170.2 cm; Wt 72.6 kg
--- NOTE | 2019-12-22 10:13 | Emergency Room Report ---
History of Present Illness General Chief Complaint: Dyspnea/Respdistress Present Illness HPI Patient is a 29-year-old female with prior history of asthma. Reports of increased cough and congestion since last night. Had recently been exposed to some environmental air [place] Denies any fever. Reports of increased cough with dark sputum. Prior history of asthma for which she takes inhalers of albuterol. Does not take medication daily and has intermittent episodes of asthma. Denies any leg pain or swelling. Denies any severe shortness of breath. Allergies: Coded Allergies: ASPIRIN (Verified Allergy, Unknown, 10/25/16) GAG REFLEX, CHEST TIGHTNESS IBUPROFEN (Verified Allergy, Unknown, 10/25/16) ACTIVATES GAG REFLEX & CHEST TIGHTNESS Patient History Past Medical History: see triage record Reviewed Nursing Documentation: PMH: Agreed; PSxH: Agreed Nursing Documentation-PMH Hx Asthma: Yes Review of Systems All Other Systems: negative except mentioned in HPI Physical Exam Sp02 EP Interpretation: reviewed, normal General Appearance: normal inspection, well appearing, no apparent distress, alert, GCS 15 Head: atraumatic ENT: normal ENT inspection, hearing grossly normal, normal voice Neck: normal inspection, full range of motion, supple, no bony tend Respiratory: normal inspection, no respiratory distress, no retraction, wheezing - Slight wheezing with slight prolonged expirations, no respiratory distress Cardiovascular #1: regular rate, rhythm, no edema Gastrointestinal: normal inspection, normal bowel sounds, non tender, soft, no guarding, no hernia Genitourinary: no CVA tenderness Musculoskeletal: normal inspection, back normal, normal range of motion Neurologic: alert, motor strength/tone normal, pressure testing technician III-XII nml as tested, oriented x3, responsive, speech normal, normal inspection Psychiatric: normal inspection, judgement/insight normal, mood/affect normal Medical Decision Making Diagnostic Impression: Primary Impression: Asthma exacerbation ER Course Patient presented for shortness of breath. Differential diagnosis include was not limited to coronavirus infection, asthma exacerbation, pneumonia among others. Patient has a benign exam and does not appear to require any imaging or laboratory testing at this time. Patient appears to have increased respiratory symptoms due to exposure to environmental pollution. Patient will be tested for coronavirus. Patient was given oral steroids as well as breathing treatment. Coronavirus testing was negative.Patient is noted to have no evidence of acute systemic toxicity and she appears to be stable for discharge. Patient is advised to return if any worsening condition or other concerns. The patient is advised to follow up with primary care doctor in 1-2 days. Patient is advised to return if any worsening condition or if any changes in status that are concerning. Patient is given a note for work. This report is dictated with [employer] staffing associate software which may occasionally lead to discrepancies related to use of this software. Status: improved Disposition: HOME, SELF-CARE Condition: Stable Scripts Prednisone* (PREDNISONE*) 20 Mg Tablet 40 MG ORAL DAILY, #10 TAB Prov: Jude Pham MD 12/22/19 Albuterol Sulfate* (Albuterol Sulfate Hfa*) 8.5 Gm Hfa.aer.ad 2 PUFF INH Q6H, #1 INH Prov: Jude Pham MD 12/22/19 Jude Pham MD Dec 22, 2019 10:13
[2019-12-22] MEDS ORDERED: Albuterol/Ipratropium 3ml neb HHN ONE (10:15)
[2019-12-22 10:24] VITALS: BP 135/76
[2019-12-22] MEDS ORDERED: PREDNISONE20 MG ORAL (11:27)
[2019-12-22] MEDS ORDERED: ALBUTEROL SULF8.5 G1 INH (11:27)
[2019-12-22 11:35] VITALS: BP 130/78
[2019-12-22 11:40] VITALS: BP 130/78
== END 2019-12-22 11:55 | disposition home or self-care (01) ==
LOC: EMR 10:15
DX: J45.901 Unspecified asthma with (acute) exacerbation (principal); Z88.6 Allergy status to analgesic agent
CPT/HCPCS: 81025; 94640; J7512; U0002; Z7502; 99283; J7620